=== PATIENT | male | born 1955 | race Caucasian/White ===

== ENCOUNTER 2022-05-20 07:15 | Day surgery (SDC) | payer MEDICARE ==
[~2022-05-20] VITALS: Ht 172.7 cm; Wt 109.4 kg
[~2022-05-20 07:15] MED LIST: ASPI325 PO; ASPI81EC PO; ATOR20 PO; Carvedilol12.5 MG PO; Norco 5-325 Ta1 EACH PO; Valium5 MG PO
[2022-05-20] MEDS ORDERED: ROSU5 PO (07:30)
--- NOTE | 2022-05-20 08:06 | NUR ---
05/20/22 0806 Alfreda Isaac HISTORY, CHART, MEDICATIONS AND ALLERGIES REVIEWED BEFORE START OF PROCEDURE. PATIENT CONFIRMS NPO STATUS AND AGREES WITH SCHEDULED PROCEDURE. 3-LEAD EKG REVIEWED WITH PHYSICIAN PRIOR TO START OF PROCEDURE. MONITOR INTACT WITH CONTINUOUS PULSE OXIMETRY,CAPNOGRAPHY, 3-LEAD EKG, INTERMITTENT BP. SUPPLEMENTAL O2 TO BE TITRATED THROUGHOUT PROCEDURE TO MAINTAIN O2 SATURATION ABOVE 90%. PATIENT DETERMINED TO BE ASA APPROPRIATE FOR PROPOFOL SEDATION PRIOR TO START OF PROCEDURE BY DR. VIEIRA.
--- NOTE | 2022-05-20 08:53 | NUR ---
Discharge instructions reviewed with patient. Patient verbalizes understanding. Copy given to patient to take home. Patient States Post-Procedure ride home has been arranged. Discharged via wheelchair to private car for ride home. Patient up to Ambulate independently. Gait steady.
== END 2022-05-20 22:40 | disposition home or self-care (01) ==
LOC: ORSCMMR 07:15 → ORD 08:00 → ORSCMMR 22:40
PROVIDERS: Internal Medicine Gastroenterology
PROC: 0DJD8ZZ Inspection of Lower Intestinal Tract, Via Natural or Artificial Opening Endoscopic (ICD-10-PCS; principal; 2022-05-20 08:00)
DX: Z12.11 Encounter for screening for malignant neoplasm of colon (principal); K57.30 Diverticulosis of large intestine without perforation or abscess without bleeding; J45.909 Unspecified asthma, uncomplicated; Z79.82 Long term (current) use of aspirin; Z79.899 Other long term (current) drug therapy
CPT/HCPCS: J2704; J7120

== ENCOUNTER → 2022-10-02 | Outpatient (CLI) | payer MEDICARE ==
[~2022-10-02] MED LIST changes: +ROSU5 PO
== END ==
LOC: LAB SHORT 09:15 → LAB 09:15
DX: L01.01 Non-bullous impetigo (principal)
CPT/HCPCS: 87070; 87077; 87147; 87186; 87205

== ENCOUNTER → 2022-11-18 | Outpatient (CLI) | payer MEDICARE | LOC: LAB 15:41 → LAB SHORT 15:41 | DX: L01.01 Non-bullous impetigo (principal) | CPT/HCPCS: 87070; 87205 ==